=== PATIENT | male | born 1990 | race Caucasian/White ===

== ENCOUNTER 2021-06-20 00:34 | Observation (INO) | payer BC, OTHER ==
[2021-06-20] MEDS ORDERED: SODIUM CHLORIDE 0.9% 500 ML 500 ML IV STA ×2 (00:48→01:47)
[2021-06-20] MEDS ORDERED: LORazepam 2 MG/ML INJ IV PRN (00:48)
[2021-06-20] MEDS ORDERED: SODIUM CHLORIDE 0.9% 1,000 ML IV STA ×3 (00:48→01:47)
[2021-06-20] MEDS ORDERED: THIAMINE 100 MG/ML 2 ML VIAL IM STA (00:48)
--- NOTE | 2021-06-20 00:57 | ED ---
Alcohol HPI - General Chief Complaint: Alcohol Stated Complaint: Alcohol Withdrawal Time Seen by Provider: 06/20/21 00:48 Source: patient, EMS, RN notes reviewed, old records reviewed Mode of arrival: EMS Limitations: altered mental status - History of Present Illness Initial Comments: This is a 31-year-old male to the emergency department for evaluation. Patient is mildly poor historian. Patient presents today for alcohol withdrawal pick patient is sent from [place] for evaluation regarding possible altered mental status. MD Complaint: alcohol intoxication, alcohol withdrawal, desires rehab Last Drink: unknown Previous Visits for Alcohol Intoxication?: No Recent Trauma: No Associated Symptoms: nausea Treatments Prior to Arrival: none Chronic Alcohol Use: Yes - Related Data Allergies Allergy/AdvReac Type Severity Reaction Status Date / Time Fish Containing Products AdvReac Nausea & Verified 06/20/21 00:41 [Fish] Vomiting & Diarrhea Review of Systems ROS Statement: Those systems with pertinent positive or pertinent negative responses have been documented in the HPI. ROS Other: All systems not noted in ROS Statement are negative. Past Medical History Past Medical History: Hypertension Additional Past Medical History / Comment(s): ETOH abuse, diverticulitis, ostomy bag History of Any Multi-Drug Resistant Organisms: None Reported Past Surgical History: Bowel Resection Additional Past Surgical History / Comment(s): bowel resection Past Psychological History: No Psychological Hx Reported Smoking Status: Current every day smoker Past Alcohol Use History: Abuse, Daily Past Drug Use History: Marijuana General Exam Limitations: altered mental status General appearance: alert, in no apparent distress, anxious Head exam: Present: atraumatic, normocephalic, normal inspection Eye exam: Present: normal appearance, PERRL, EOMI. Absent: scleral icterus, conjunctival injection, periorbital swelling ENT exam: Present: normal exam, mucous membranes moist Neck exam: Present: normal inspection. Absent: tenderness, meningismus, lymphadenopathy Respiratory exam: Present: normal lung sounds bilaterally. Absent: respiratory distress, wheezes, rales, rhonchi, stridor Cardiovascular Exam: Present: regular rate, normal rhythm, normal heart sounds. Absent: systolic murmur, diastolic murmur, rubs, gallop, clicks GI/Abdominal exam: Present: soft, normal bowel sounds. Absent: distended, tenderness, guarding, rebound, rigid Extremities exam: Present: normal inspection, full ROM, normal capillary refill. Absent: tenderness, pedal edema, joint swelling, calf tenderness Back exam: Present: normal inspection Neurological exam: Present: alert, oriented X3, CN II-XII intact Psychiatric exam: Present: normal affect, normal mood Skin exam: Present: warm, dry, intact, normal color. Absent: rash Course Vital Signs 06/20/21 06/20/21 00:38 01:34 Temperature 98.3 F Pulse Rate 78 73 Respiratory 18 16 Rate Blood Pressure 152/86 O2 Sat by Pulse 98 99 Oximetry - Reevaluation(s) Reevaluation #1: 06/20/21 00:57 Medical records reviewed Reevaluation #2: 06/20/21 02:07 Patient symptoms are moderately improved here in the ER Reevaluation #3: 06/20/21 02:07 Patient is informed of results and questions have been answered - Consultations Consultation #1: Spoke with [facility] who agree to admit the patient Medical Decision Making - Medical Decision Making 31-year-old male to the emergency department for evaluation. Patient is from [place] with altered mental status may be early delirium. Patient is going through alcohol withdrawal. Patient also has pancreatitis with abnormal lab values. Patient be admitted for evaluation and treatment - Lab Data Result diagrams: 06/20/21 00:59 06/20/21 00:59 Lab Results 06/20/21 06/20/21 06/20/21 Range/Units 00:59 00:59 01:00 WBC 5.9 (3.8-10.6) k/uL RBC 3.53 L (4.30-5.90) m/uL Hgb 12.7 L (13.0-17.5) gm/dL Hct 37.3 L (39.0-53.0) % MCV 105.8 H (80.0-100.0) fL MCH 36.0 H (25.0-35.0) pg MCHC 34.0 (31.0-37.0) g/dL RDW 14.2 (11.5-15.5) % Plt Count 130 L (150-450) k/uL MPV 8.9 Neutrophils % 47 % Lymphocytes % 35 % Monocytes % 10 % Eosinophils % 4 % Basophils % 2 % Neutrophils # 2.8 (1.3-7.7) k/uL Lymphocytes # 2.1 (1.0-4.8) k/uL Monocytes # 0.6 (0-1.0) k/uL Eosinophils # 0.2 (0-0.7) k/uL Basophils # 0.1 (0-0.2) k/uL Macrocytosis Moderate Sodium 133 L (137-145) mmol/L Potassium 3.4 L (3.5-5.1) mmol/L Chloride 97 L (98-107) mmol/L Carbon Dioxide 22 (22-30) mmol/L Anion Gap 14 mmol/L BUN 16 (9-20) mg/dL Creatinine 0.66 (0.66-1.25) mg/dL Est GFR (CKD-EPI)AfAm >90 (>60 ml/min/1.73 sqM) Est GFR (CKD-EPI)NonAf >90 (>60 ml/min/1.73 sqM) Glucose 90 (74-99) mg/dL Calcium 8.8 (8.4-10.2) mg/dL Phosphorus 4.4 (2.5-4.5) mg/dL Magnesium 0.9 L* (1.6-2.3) mg/dL Total Bilirubin 8.8 H (0.2-1.3) mg/dL AST 317 H (17-59) U/L ALT 117 H (4-49) U/L Alkaline Phosphatase 147 H (38-126) U/L Total Protein 7.9 (6.3-8.2) g/dL Albumin 4.2 (3.5-5.0) g/dL Lipase 1993 H (23-300) U/L Urine Color Dark Yellow Urine Appearance Clear (Clear) Urine pH 7.0 (5.0-8.0) Ur Specific [place] 1.007 (1.001-1.035) Urine Protein Negative (Negative) Urine Glucose (UA) Negative (Negative) Urine Ketones Negative (Negative) Urine Blood Negative (Negative) Urine Nitrite Negative (Negative) Urine Bilirubin 2+ H (Negative) Urine Urobilinogen 12.0 (<2.0) mg/dL Ur Leukocyte Esterase Negative (Negative) Urine Opiates Screen Not Detected (NotDetected) Ur Oxycodone Screen Not Detected (NotDetected) Urine Methadone Screen Not Detected (NotDetected) Ur Propoxyphene Screen Not Detected (NotDetected) Ur Barbiturates Screen Not Detected (NotDetected) U Tricyclic Antidepress Detected H (NotDetected) Ur Phencyclidine Scrn Not Detected (NotDetected) Ur Amphetamines Screen Not Detected (NotDetected) U Methamphetamines Scrn Not Detected (NotDetected) U Benzodiazepines Scrn Detected H (NotDetected) Urine Cocaine Screen Not Detected (NotDetected) U Marijuana (THC) Screen Detected H (NotDetected) Serum Alcohol <10 mg/dL Disposition Clinical Impression: Alcohol withdrawal syndrome, Alcoholic hepatitis, Hypomagnesemia, Hypokalemia, Acute pancreatitis Disposition: ADMITTED IP TO THIS [facility] Condition: Fair Is patient prescribed a controlled substance at d/c from ED?: No Referrals: Nonstaff,Physician [Primary Care Provider] - 1-2 days
[2021-06-20 01:13] LABS: Basophils # (A) 0.1 k/uL (0-0.2); Basophils % (A) 2 %; Eosinophils # (A) 0.2 k/uL (0-0.7); Eosinophils % (A) 4 %; HCT 37.3 % (39.0-53.0); HGB 12.7 gm/dL (13.0-17.5); Lymphocytes # (A) 2.1 k/uL (1.0-4.8); Lymphocytes % (A) 35 %; MCV 105.8 fL (80.0-100.0); Macrocytosis Moderate; Mean Platelet Volume 8.9; Monocytes # (A) 0.6 k/uL (0-1.0); Monocytes % (A) 10 %; Neutrophils # (A) 2.8 k/uL (1.3-7.7); Neutrophils % (A) 47 %; Platelet Count 130 k/uL (150-450); RBC 3.53 m/uL (4.30-5.90); RDW 14.2 % (11.5-15.5); WBC 5.9 k/uL (3.8-10.6)
[2021-06-20 01:24] LABS: Appearance,Urine Clear (Clear); Bilirubin,Urine 2+ (Negative); Blood,Urine Negative (Negative); Color,Urine Dark Yellow; Glucose,Urine (UA) Negative (Negative); Ketones,Urine Negative (Negative); Leukocyte Esterase,Urine Negative (Negative); Nitrite,Urine Negative (Negative); Protein,Urine Negative (Negative); Specific Gravity,Urine 1.007 (1.001-1.035)
[2021-06-20] MEDS: LORazepam 2 MG/ML INJ IV PRN ×8 (01:25→17:00)
[2021-06-20] MEDS: DIAZEPAM 5 MG/ML 2 ML INJ IVP SCH ×4 (01:25→18:36)
[2021-06-20 01:35] LABS: ALT 117 U/L (4-49); AST 317 U/L (17-59); African American GFR (CKD) >90 (>60 ml/min/1.73 sqM); Albumin 4.2 g/dL (3.5-5.0); Alcohol <10 mg/dL; Alkaline Phosphatase 147 U/L (38-126); Anion Gap 14 mmol/L; Blood Urea Nitrogen 16 mg/dL (9-20); Calcium 8.8 mg/dL (8.4-10.2); Carbon Dioxide 22 mmol/L (22-30); Chloride 97 mmol/L (98-107); Glucose 90 mg/dL (74-99); Lipase 1993 U/L (23-300); Non-African American GFR(CKD) >90 (>60 ml/min/1.73 sqM); Phosphorus 4.4 mg/dL (2.5-4.5); Potassium 3.4 mmol/L (3.5-5.1); Sodium 133 mmol/L (137-145); Total Bilirubin 8.8 mg/dL (0.2-1.3); Total Protein 7.9 g/dL (6.3-8.2)
[2021-06-20 01:37] LABS: Cocaine Screen,Urine Not Detected (NotDetected); Opiate Screen,Urine Not Detected (NotDetected); Phencyclidine Screen,Urine Not Detected (NotDetected); Urn Cannabinoid Scrn Detected (NotDetected)
[2021-06-20 01:38] LABS: Amphetamine Screen,Urine Not Detected (NotDetected); Barbiturate Screen,Urine Not Detected (NotDetected); Benzodiazepines Screen,Urine Detected (NotDetected); Methadone Screen, Urine Not Detected (NotDetected); Oxycodone Screen, Urine Not Detected (NotDetected); Tricyclic Antidepressant,Urine Detected (NotDetected)
[2021-06-20 01:41] LABS: Magnesium 0.9 mg/dL (1.6-2.3)
[2021-06-20] MEDS ORDERED: POTASSIUM CHLORIDE 20 MEQ in WATER FOR INJECTION 1 100ML.BAG IVPB STA (01:48)
[2021-06-20] MEDS ORDERED: POTASSIUM BICARBONATE/CIT AC 20 MEQ TABLET.EFF PO ONE (01:48)
[2021-06-20] MEDS ORDERED: MORPHINE SULFATE 4 MG/ML SYRINGE IV PRN (02:04)
[2021-06-20] MEDS ORDERED: NALOXONE 0.4 MG/ML 1 ML VIAL IV PRN (02:04)
[2021-06-20] MEDS ORDERED: ONDANSETRON 4 MG/2 ML VIAL IVP PRN (02:04)
[2021-06-20 03:32] LABS: INR 1.2 (<1.2); Prothrombin Time 12.9 sec (9.0-12.0)
[2021-06-20] MEDS: MAGNESIUM SULFATE-D5W PMX 1 GM in DEXTROSE/WATER 1 100ML.BAG IVPB SCH ×4 (03:52→09:01)
[2021-06-20] MEDS: DEXTROSE 5%-0.45% NACL 1,000 ML IV SCH ×2 (03:57→10:50)
[2021-06-20] MEDS ORDERED: THIAMINE 100 MG TAB PO SCH (07:30)
[2021-06-20] MEDS ORDERED: LORazepam 2 MG/ML INJ IV STA (09:01)
[2021-06-20] MEDS: HALOPERIDOL LACTATE 5 MG/ML 1 ML VIAL IM PRN ×2 (09:17→13:17)
[2021-06-20] MEDS: MULTIVITAMINS, THERA 1 EACH TAB PO SCH (09:17)
[2021-06-20 10:06] LABS: HCT 37.5 % (39.0-53.0); HGB 12.1 gm/dL (13.0-17.5); MCH 35.2 pg (25.0-35.0); MCHC 32.2 g/dL (31.0-37.0); MCV 109.4 fL (80.0-100.0); Macrocytosis Marked; Mean Platelet Volume 8.5; Platelet Count 133 k/uL (150-450); RBC 3.43 m/uL (4.30-5.90); WBC 4.8 k/uL (3.8-10.6)
[2021-06-20 10:21] LABS: ALT 114 U/L (4-49); AST 286 U/L (17-59); African American GFR (CKD) >90 (>60 ml/min/1.73 sqM); Albumin 3.9 g/dL (3.5-5.0); Alkaline Phosphatase 156 U/L (38-126); Amylase 128 U/L (30-110); Anion Gap 9 mmol/L; Blood Urea Nitrogen 10 mg/dL (9-20); Calcium 8.4 mg/dL (8.4-10.2); Carbon Dioxide 17 mmol/L (22-30); Chloride 106 mmol/L (98-107); Globulin 3.8 g/dL; Glucose 94 mg/dL (74-99); Lipase 1479 U/L (23-300); Non-African American GFR(CKD) >90 (>60 ml/min/1.73 sqM); Sodium 132 mmol/L (137-145); Total Bilirubin 8.3 mg/dL (0.2-1.3); Total Protein 7.7 g/dL (6.3-8.2)
[2021-06-20 11:46] LABS: Basophils # (M) 0.05 k/uL (0-0.2); Eosinophils # (M) 0.05 k/uL (0-0.7); Lymphocytes # (M) 1.68 k/uL (1.0-4.8); Monocytes # (M) 0.48 k/uL (0-1.0); Neutrophils # (M) 2.54 k/uL (1.3-7.7); Neutrophils % (M) 53 %; Nucleated Red Blood Cells 0 /100 WBC (0-0); Total Cells Counted 100
[2021-06-20] MEDS: NICOTINE 21MG/24HR PATCH TRANSDERM SCH (11:55)
[2021-06-20 12:12] LABS: Glucose,Whole Blood 112 mg/dL (75-99)
[2021-06-20] MEDS ORDERED: ACETAMINOPHEN TAB 325 MG TAB PO PRN (14:44)
[2021-06-20] MEDS ORDERED: cloNIDine HCL 0.1 MG TAB PO PRN (14:44)
[2021-06-20] MEDS ORDERED: ONDANSETRON 4 MG TAB PO PRN (14:44)
--- NOTE | 2021-06-20 14:45 | P.HPIM ---
History of Present Illness H&P Date: 06/20/21 This is a 31-year-old male who was recently admitted from [place] [facility] for altered mental status and alcohol withdrawal. Patient is a poor historian although able to report he has an ostomy from chronic diverticulitis and admits to drinking approximately 2 pints of alcohol per day and reports his last drink was approximately 3 or 4 days ago. Patient was placed on CIWA protocol. Patient has a past medical history of EtOH abuse, diverticulitis, and colostomy, bowel resection, continued ongoing nicotine abuse, daily marijuana user, and hypertension. Labs on initial ER presentation show WBC of 4.8, hemoglobin is 12.1, platelets are 133, sodium is 132, potassium is 4.0, BUN is 10, creatinine is 0.56, magnesium is 0.9, total bilirubin is 8.3, AST 286, ALT is 114, alk phos is 156, ammonia is 40, amylase is 128, lipase is 1479, urinalysis was negative, antidepressants, benzos, marijuana was positive on urinalysis drug screen, serum alcohol is less than 10, COVID-19 not detected. Patient was started on IV hydration and will be admitted. Patient denies any chest pain, shortness of breath, or palpitations. Patient is afebrile. Patient denies any abdominal pain nausea or vomiting and is tolerating diet. Review Of Systems: Constitutional: No fever, no chills, no night sweats. No weight change. No weakness, fatigue or lethargy. No daytime sleepiness. EENT: No headache. No blurred vision or double vision, no loss of vision. No loss of Hearing, no ringing in the ears, no dizziness. No nasal drainage or congestion. No epistaxis. No sore throat. Lungs: No shortness of breath, cough, no sputum production. No wheezing. Cardiovascular: No chest pain, no lower extremity edema. No palpitations. No paroxysmal nocturnal dyspnea. No orthopnea. No lightheadedness or dizziness. No syncopal episodes. Abdominal: No abdominal pain. No nausea, vomiting. No diarrhea. No constipation. No bloody or tarry stools.. No loss of appetite. Genitourinary: No dysuria, increased frequency, urgency. No urinary retention. Musculoskeletal: No myalgias. No muscle weakness, no gait dysfunction, no frequent falls. No back pain. No neck pain. Integumentary: No wounds, no lesions. No rash or pruritus. No unusual bruising. No change in hair or nails. Neurologic: No aphasia. No facial droop. No change in mentation. No head injury. No headache. No paralysis. No paresthesia. Psychiatric: No depression. Reports anxiety. No mood swings. Endocrine: No abnormal blood sugars. No weight change. No excessive sweating or thirst. No cold intolerance. Active Medications Diazepam (Diazepam 5 Mg/Ml 2 Ml Inj) 5 mg IVP Q8H [facility] Last Admin: 06/20/21 11:20 Dose: 5 mg Documented by: Haloperidol Lactate (Haloperidol Lactate 5 Mg/Ml 1 Ml Vial) 2 mg IM Q4HR PRN PRN Reason: Agitation or Acute Psychosis Last Admin: 06/20/21 13:17 Dose: 2 mg Documented by: Dextrose/Sodium Chloride (Dextrose 5%-1/2ns Iv Soln) 1,000 mls @ 120 mls/hr IV .Q8H20M [facility] Last Admin: 06/20/21 10:50 Dose: 120 mls/hr Documented by: Lorazepam (Lorazepam 2 Mg/Ml Inj) 1 mg IV Q2HR PRN PRN Reason: CIWA 8 or 9 Last Admin: 06/20/21 04:12 Dose: 1 mg Documented by: Lorazepam (Lorazepam 2 Mg/Ml Inj) 1 mg IV Q1HR PRN PRN Reason: CIWA 10 to 15 Last Admin: 06/20/21 10:54 Dose: 1 mg Documented by: Morphine Sulfate (Morphine Sulfate 4 Mg/Ml Syringe) 4 mg IV Q4HR PRN PRN Reason: Severe Pain Multivitamins (Multivitamins, Thera 1 Each Tab) 1 each PO DAILY [facility] Last Admin: 06/20/21 09:17 Dose: 1 each Documented by: Naloxone HCl (Naloxone 0.4 Mg/Ml 1 Ml Vial) 0.2 mg IV Q2M PRN PRN Reason: Opioid Reversal Nicotine (Nicotine 21mg/24hr Patch) 1 patch TRANSDERM DAILY [facility] Last Admin: 06/20/21 11:55 Dose: 1 patch Documented by: Ondansetron HCl (Ondansetron 4 Mg/2 Ml Vial) 4 mg IVP Q8HR PRN PRN Reason: Nausea And Vomiting Last Admin: 06/20/21 11:24 Dose: 4 mg Documented by: Pantoprazole Sodium (Pantoprazole 40 Mg/10 Ml Vial) 40 mg IVP BID [facility] Thiamine HCl (Thiamine 100 Mg Tab) 200 mg PO BID-W/MEALS [facility] PHYSICAL EXAMINATION: GENERAL: The patient is alert and oriented x2-3, Well developed, well nourished. Anxious, pacing HEENT: Pupils are round and and dilated, reactive to light. EOMI. positive for scleral icterus. No conjunctival pallor. Normocephalic, atraumatic. No pharyngeal erythema. No thyromegaly. CARDIOVASCULAR: S1 and S2 present PULMONARY: Clear to auscultation with no wheezing or rhonchi noted ABDOMEN: soft. Nontender on exam. obese. Mildly distended, normoactive bowel sounds. No palpable organomegaly. Ostomy noted on the left with stool and gas MUSCULOSKELETAL: No joint swelling or deformity. EXTREMITIES: No cyanosis, clubbing, or pedal edema. NEUROLOGICAL: Gross neurological examination did not reveal any focal deficits. SKIN: No rashes. Assessment: Acute alcohol withdrawal with possible early delirium tremens Hyperammonemia Alcoholic hepatitis Elevated LFTs secondary to above Alcoholic cirrhosis with ascites History of chronic diverticulitis resulting in colostomy Hypertension Severe hypomagnesemia Alcoholic pancreatitis with elevated amylase and lipase GI prophylaxis DVT prophylaxis, early ambulation Full code Plan: Recommend to continue with current medications and CIWA protocol. Willl consult psychiatry and appreciate input and recommendations. Patient was apparently at [place] [facility] although was altered and going through withdrawals and was brought to the emergency department for further evaluation. On exam patient is altered and confused although somewhat coherent with his history. Patient is maintained on CIWA protocol and continues to be extremely anxious and restless and will use Haldol as well. Patient denies any history of alcoholic cirrhosis or hepatitis although continues to drink approximately 2 pints of hard liquor daily. Will order ultrasound of the liver which is currently pending. Ammonia level mildly elevated and will repeat labs. Patient's amylase and lipase is elevated although patient denies any abdominal pain, denies any discomfort on palpation during exam and will like to eat. Patient is tolerating diet with no reports of nausea or vomiting noted and again denies any abdominal pain. Patient is mildly distended with some ascites noted on exam and also noted to have left-sided colostomy with gas and stool noted. Recommend close monitoring and continuing to frequently reorient the patient. Magnesium was found to be 0.9 and will replace and repeat labs. Due to multiple complex medical issues, prognosis is guarded. The impression and plan of care has been dictated by Svitlana Baez, nurse practitioner as directed. MD Jan I have performed a history and examination and MDM of this patient, discussed the same with the dictator, and agree with the dictator's assessment and plan as written ,documented as a scribe. Based on total visit time, I have performed more than 50% of the visit. Any additional findings or plans will be noted. Review of Systems ROS unobtainable: due to mental status Past Medical History Past Medical History: Hypertension Additional Past Medical History / Comment(s): ETOH abuse, diverticulitis, ostomy bag History of Any Multi-Drug Resistant Organisms: None Reported Past Surgical History: Bowel Resection Additional Past Surgical History / Comment(s): bowel resection Past Psychological History: No Psychological Hx Reported Smoking Status: Current every day smoker Past Alcohol Use History: Abuse, Daily Past Drug Use History: Marijuana Medications and Allergies Home Medications Medication Instructions Recorded Confirmed Type Acetaminophen [Tylenol] 650 mg PO Q4H PRN MDD 3 DOSE 06/20/21 06/20/21 History DULoxetine HCL [Cymbalta] 60 mg PO DAILY 06/20/21 06/20/21 History Divalproex [Depakote] 500 mg PO BID 06/20/21 06/20/21 History LORazepam [Ativan] 1 - 2 mg PO DIRECTED 06/20/21 06/20/21 History Labetalol [Trandate] 100 mg PO TID 06/20/21 06/20/21 History QUEtiapine FUMARATE [SEROquel] 400 mg PO HS 06/20/21 06/20/21 History QUEtiapine [SEROquel] 100 mg PO DAILY 06/20/21 06/20/21 History amLODIPine [Norvasc] 5 mg PO DAILY 06/20/21 06/20/21 History cloNIDine HCL [Catapres] 0.1 - 0.3 mg PO Q4H PRN 06/20/21 06/20/21 History ondansetron HCL [Zofran] 8 mg PO Q6H PRN 06/20/21 06/20/21 History Allergies Allergy/AdvReac Type Severity Reaction Status Date / Time Fish Containing Products AdvReac Nausea & Verified 06/20/21 07:14 [Fish] Vomiting & Diarrhea Physical Exam Vitals: Vital Signs Temp Pulse Resp BP Pulse Ox 06/20/21 05:45 78 17 124/87 98 06/20/21 03:58 75 16 120/83 98 06/20/21 02:35 80 135/80 98 06/20/21 01:34 73 16 99 06/20/21 00:38 98.3 F 78 18 152/86 98 Intake and Output 06/19/21 06/20/21 06/20/21 22:59 06:59 14:59 Intake Total 480 Balance 480 Intake: Oral 480 Other: # Voids 1 # Bowel Movements 1 Weight 90.718 kg Results CBC & Chem 7: 06/20/21 09:38 06/20/21 09:38 Labs: Abnormal Lab Results - Last 24 Hours (Table) 06/20/21 06/20/21 06/20/21 Range/Units 00:59 00:59 01:00 RBC 3.53 L (4.30-5.90) m/uL Hgb 12.7 L (13.0-17.5) gm/dL Hct 37.3 L (39.0-53.0) % MCV 105.8 H (80.0-100.0) fL MCH 36.0 H (25.0-35.0) pg Plt Count 130 L (150-450) k/uL PT (9.0-12.0) sec INR (<1.2) Sodium 133 L (137-145) mmol/L Potassium 3.4 L (3.5-5.1) mmol/L Chloride 97 L (98-107) mmol/L Magnesium 0.9 L* (1.6-2.3) mg/dL Total Bilirubin 8.8 H (0.2-1.3) mg/dL AST 317 H (17-59) U/L ALT 117 H (4-49) U/L Alkaline Phosphatase 147 H (38-126) U/L Lipase 1993 H (23-300) U/L Urine Bilirubin 2+ H (Negative) U Tricyclic Antidepress Detected H (NotDetected) U Benzodiazepines Scrn Detected H (NotDetected) U Marijuana (THC) Screen Detected H (NotDetected) 06/20/21 Range/Units 03:13 RBC (4.30-5.90) m/uL Hgb (13.0-17.5) gm/dL Hct (39.0-53.0) % MCV (80.0-100.0) fL MCH (25.0-35.0) pg Plt Count (150-450) k/uL PT 12.9 H (9.0-12.0) sec INR 1.2 H (<1.2) Sodium (137-145) mmol/L Potassium (3.5-5.1) mmol/L Chloride (98-107) mmol/L Magnesium (1.6-2.3) mg/dL Total Bilirubin (0.2-1.3) mg/dL AST (17-59) U/L ALT (4-49) U/L Alkaline Phosphatase (38-126) U/L Lipase (23-300) U/L Urine Bilirubin (Negative) U Tricyclic Antidepress (NotDetected) U Benzodiazepines Scrn (NotDetected) U Marijuana (THC) Screen (NotDetected) Assessment and Plan Time with Patient: Greater than 30
--- NOTE | 2021-06-20 15:41 | US ---
EXAMINATION TYPE: US liver DATE OF EXAM: 06/20/2021 COMPARISON: NONE CLINICAL HISTORY: Alcoholic cirrhosis, ascites. EXAM MEASUREMENTS: Liver Length: 20.7 cm Gallbladder Wall: 0.2 cm CBD: 0.4 cm Right Kidney: 12.5 x 5.9 x 5.5 cm Pancreas: obscured by overlying midline bowel gas Liver: enlarged, attenuating, heterogeneous, increased echogenicity Gallbladder: borderline hydropic Evidence for sonographic [place]'s sign: n/a CBD: visualized portions wnl, limited by overlying bowel gas Right Kidney: wnl IMPRESSION: Hepatomegaly with underlying hepatic steatosis.
[2021-06-20] MEDS: QUEtiapine 400 MG TAB PO SCH ×2 (16:40→20:25)
[2021-06-20] MEDS: LABETALOL 100 MG TAB PO SCH (16:40)
[2021-06-20] MEDS: QUEtiapine 100 MG TAB PO SCH (16:43)
--- NOTE | 2021-06-20 18:17 | US ---
EXAMINATION TYPE: US abdomen limited DATE OF EXAM: 06/20/2021 COMPARISON: NONE CLINICAL HISTORY: us limited, ascites. No ascites seen. Limited abdomen ultrasound was performed. IMPRESSION: No evident ascites on this limited exam.
[2021-06-20] MEDS: THIAMINE 100 MG TAB PO SCH (20:24)
[2021-06-20] MEDS: DIVALPROEX 500 MG TABLET.DR PO SCH (20:25)
[2021-06-20] MEDS: PANTOPRAZOLE 40 MG/10 ML VIAL IVP SCH (20:25)
[2021-06-21] MEDS: LABETALOL 100 MG TAB PO SCH ×2 (00:34→09:22)
[2021-06-21] MEDS: DEXTROSE 5%-0.45% NACL 1,000 ML IV SCH ×3 (00:36→09:23)
[2021-06-21] MEDS: DIAZEPAM 5 MG/ML 2 ML INJ IVP SCH ×2 (03:28→10:56)
[2021-06-21] MEDS ORDERED: amLODIPine 5 MG TAB PO SCH (09:00)
[2021-06-21] MEDS: PANTOPRAZOLE 40 MG/10 ML VIAL IVP SCH (09:21)
[2021-06-21] MEDS: NICOTINE 21MG/24HR PATCH TRANSDERM SCH (09:22)
[2021-06-21] MEDS: MULTIVITAMINS, THERA 1 EACH TAB PO SCH (09:22)
[2021-06-21] MEDS: THIAMINE 100 MG TAB PO SCH (09:22)
[2021-06-21] MEDS: DULoxetine HCL 60 MG CAPSULE.DR PO SCH (09:22)
[2021-06-21] MEDS: DIVALPROEX 500 MG TABLET.DR PO SCH (09:23)
[2021-06-21 09:47] VITALS: TEMP 98.3
[2021-06-21 09:50] LABS: ALT 108 U/L (4-49); African American GFR (CKD) >90 (>60 ml/min/1.73 sqM); Albumin 3.7 g/dL (3.5-5.0); Anion Gap 10 mmol/L; Blood Urea Nitrogen 7 mg/dL (9-20); Calcium 8.4 mg/dL (8.4-10.2); Carbon Dioxide 17 mmol/L (22-30); Chloride 111 mmol/L (98-107); Glucose 122 mg/dL (74-99); Lipase 1399 U/L (23-300); Non-African American GFR(CKD) >90 (>60 ml/min/1.73 sqM); Phosphorus 3.3 mg/dL (2.5-4.5); Sodium 138 mmol/L (137-145); Total Bilirubin 7.6 mg/dL (0.2-1.3); Total Protein 7.3 g/dL (6.3-8.2)
[2021-06-21 09:55] LABS: AST 287 U/L (17-59); Alkaline Phosphatase 136 U/L (38-126); Potassium 4.3 mmol/L (3.5-5.1)
[2021-06-21] MEDS: QUEtiapine 100 MG TAB PO SCH (10:56)
--- NOTE | 2021-06-21 11:23 | P.CN ---
Psychiatric Consult - . Consult date: 06/21/21 Consult:: 06/21/21 11:16 This 31-year-old white male was seen for a psychiatric consult. He stated that he was drinking 2 pints of alcohol per day. He was at [place] and was transferred to [facility] with a diagnosis of delirium tremens. He stated that that he went to [place] for detox. He stated he occasionally uses marijuana but basically he has a problem with alcohol. He denies any other medical or surgical problems. He denies any family history of alcoholism or mental illness or suicide. 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 This patient is alert and oriented to time place and person he appears to be of his stated age. He denies any auditory or visual or any other types of hallucinations. He denies having any paranoid or any other types of delusions. He denies having any suicidal or homicidal thoughts ideations or plans. He denies having any anxiety or panic attacks. He denies having any mood swings, rozina or depression. He is a relevant, coherent and in touch with the reality and stated that that he likes to go back to [place] to pear picker his belongings. Beyond that he plans to go to [facility] recovery house after he is discharged from the hospital. Recommendations: This patient does not meet the criteria for inpatient psychiatric hospitalization. He can be discharged with the recommendation that he goes for alcohol rehabilitation.
[2021-06-21 11:34] LABS: HCT 39.3 % (39.0-53.0); HGB 12.4 gm/dL (13.0-17.5); MCH 34.9 pg (25.0-35.0); MCHC 31.6 g/dL (31.0-37.0); MCV 110.6 fL (80.0-100.0); Macrocytosis Marked; Mean Platelet Volume 8.6; Platelet Count 144 k/uL (150-450); RBC 3.55 m/uL (4.30-5.90); RDW 15.5 % (11.5-15.5)
[2021-06-21 11:36] VITALS: BP 131/86; PULSE 75; RESP 16
[2021-06-21 12:31] LABS: Monocytes # (M) 0.72 k/uL (0-1.0); Myelocytes # (M) 0.04 k/uL (0); Myelocytes % 1 %; Nucleated Red Blood Cells 0 /100 WBC (0-0)
[2021-06-21 12:33] LABS: Basophils # (M) 0.04 k/uL (0-0.2); Eosinophils # (M) 0.08 k/uL (0-0.7); Neutrophils % (M) 60 %; Total Cells Counted 200
--- NOTE | 2021-06-22 08:52 | P.DS ---
Providers Date of admission: 06/20/21 02:04 Attending physician: Jessica Newby Consults: 06/20/21 14:47 Consult Physician Urgent Consulting Provider: Dejuan Tolentino Consult Reason/Comments: AMS, etoh Do you want consulting provider notified?: Yes 06/20/21 23:50 Consult Physician Routine Consulting Provider: Psychiatry - [facility] Psychiatry Consult Reason/Comments: AMS, ETOH Do you want consulting provider notified?: Yes, Notify in am Primary care physician: Physician Nonstaff Hospital Course: Final Diagnosis Acute alcohol withdrawal with possible early delirium tremens Hyperammonemia Alcoholic hepatitis Elevated LFTs secondary to above Alcoholic cirrhosis with ascites History of chronic diverticulitis resulting in colostomy Hypertension Severe hypomagnesemia Alcoholic pancreatitis with elevated amylase and lipase Chronic ongoing nicotine dependence: Counseling provided GI prophylaxis DVT prophylaxis, early ambulation Full code Discharge Disposition Patient stable for discharge to [place] and then going to a sober house. Patient has a room available at a sober house, plan is to return to [place] for belongings and to transition to sober [facility] otherwise he is homeless. Worried if he stays in hospital any longer he will lose his room. Today he is alert and oriented and appropriate. He was cleared by psych with no need for inpatient evaluation. Hospital Course This is a pleasant 31 year old male who presents to the hospital with alcohol withdrawal sent from [place] regarding mental status changes. Patient is a past medical history significant for hypertension, liver disease, EtOH abuse, diverticulitis with colectomy and end colostomy. Patient also is a daily marijuana user, ongoing nicotine abuse. Patient is drinking 2 pints of alcohol per day last drink was about 3-4 days ago. He has been a [place] for rehab. Labs on admission show sodium 133, potassium 3.4, magnesium 0.9, total bili 8.8, AST 317, ALT 117, lipase 1993, white count 5.9, hemoglobin 12.7, platelet count 1:30. Ammonia was elevated at 40. Urine drug toxicology positive for benzodiazepines and marijuana, vital signs on admission 90.310, heart rate 70, blood pressure 124/87 and 98% room air. Liver ultrasound shows hepatomegaly with underlying hepatic steatosis. Abdominal ultrasound shows no evident ascites on this limited exam. Psychiatric evaluation patient was alert and oriented 3 there was no hallucinations or paranoia psychology follow patient was stable for discharge with recommendation was [facility] does not meet criteria for inpatient psychiatric admission. Patient follows with Dr. Roderick Contreras. Home medications include clonidine Zofran Ativan Seroquel and Cymbalta Trandate Depakote Norvasc. Patient does verbalize understanding of risk of continuing alcohol consumption. Treated with IM Haldol, IV Ativan. 06/21/2021 Patient is alert and oriented 3 and appropriate there are no hallucinations, no headache. He denies any chest pain cough or shortness of breath. Denies any nausea vomiting or diarrhea. Patient was monitored overnight and numerous signs of acute withdrawal. There is minimal tremoring with arms extended and patient states he does not feel the tremoring. He was to be discharged today to follow- up with his primary care provider as well as a GI specialist. He states that he does not leave today he will be homeless and he will lose his room with a sober house and he really needs to continue his sobriety. States he has completed alcohol withdrawl at [place] already. Labs show white count 4.0, hemoglobin 12.4, sodium 138, potassium 4.3, chloride 111, CO2 17, BUN 7, creatinine 0.47, glucose 112 ,magnesium 2.0, AST 287, ALT 108, alkphos 136, lipase improving at 1399. Lungs are clear, S1-S2 auscultated, abdomen with positive bowel sounds, ostomy is passing gas and stool. Patient ambulating without difficulty focal neurological exam is negative. Counseled on importance of alcohol tobacco cessation. Please see medication reconciliation for list of current medications. Thank you for allowing us to participate in the care of this patient. Patient Condition at Discharge: Fair Plan - Discharge Summary Discharge Rx Participant: No New Discharge Prescriptions: New Pantoprazole [Protonix] 40 mg PO DAILY #30 tab Thiamine [Vitamin B-1] 200 mg PO BID-W/MEALS #60 tab Nicotine 21Mg/24Hr Patch [Habitrol] 1 patch TRANSDERM DAILY #7 patch Multivitamins, Thera [Multivitamin (formulary)] 1 each PO DAILY #30 tab Continue LORazepam [Ativan] 1 - 2 mg PO DIRECTED QUEtiapine FUMARATE [SEROquel] 400 mg PO HS Labetalol [Trandate] 100 mg PO TID Divalproex [Depakote] 500 mg PO BID ondansetron HCL [Zofran] 8 mg PO Q6H PRN PRN Reason: Nausea Acetaminophen [Tylenol] 650 mg PO Q4H PRN MDD 3 DOSE PRN Reason: Pain Or Fever > 100.5 cloNIDine HCL [Catapres] 0.1 - 0.3 mg PO Q4H PRN PRN Reason: BP > 160/100 DULoxetine HCL [Cymbalta] 60 mg PO DAILY amLODIPine [Norvasc] 5 mg PO DAILY Discontinued QUEtiapine [SEROquel] 100 mg PO DAILY Discharge Medication List Acetaminophen [Tylenol] 650 mg PO Q4H PRN MDD 3 DOSE 06/20/21 [History] DULoxetine HCL [Cymbalta] 60 mg PO DAILY 06/20/21 [History] Divalproex [Depakote] 500 mg PO BID 06/20/21 [History] LORazepam [Ativan] 1 - 2 mg PO DIRECTED 06/20/21 [History] Labetalol [Trandate] 100 mg PO TID 06/20/21 [History] QUEtiapine FUMARATE [SEROquel] 400 mg PO HS 06/20/21 [History] amLODIPine [Norvasc] 5 mg PO DAILY 06/20/21 [History] cloNIDine HCL [Catapres] 0.1 - 0.3 mg PO Q4H PRN 06/20/21 [History] ondansetron HCL [Zofran] 8 mg PO Q6H PRN 06/20/21 [History] Multivitamins, Thera [Multivitamin (formulary)] 1 each PO DAILY #30 tab 06/21/21 [Rx] Nicotine 21Mg/24Hr Patch [Habitrol] 1 patch TRANSDERM DAILY #7 patch 06/21/21 [Rx] Pantoprazole [Protonix] 40 mg PO DAILY #30 tab 06/21/21 [Rx] Thiamine [Vitamin B-1] 200 mg PO BID-W/MEALS #60 tab 06/21/21 [Rx] Follow up Appointment(s)/Referral(s): Roderick Contreras Dr [Other] - 1-2 Days Ambulatory/Diagnostic Orders: Comprehensive Metabolic Panel [LAB.AMB] Time Frame: 3 Days, Location: None Selected Lipase [LAB.AMB] Time Frame: 3 Days, Location: None Selected Patient Instructions/Handouts: Pancreatitis (DC), Cirrhosis (DC), Alcohol Dependence (DC) Activity/Diet/Wound Care/Special Instructions: Discharge back to [place] Patient has a room available at a sober house, plan is to return to [place] for belongings and to transition to sober house otherwise he is homeless. Worried if he stays in hospital any longer he will lose his room. Recommend patient to follow up with a gastro-enterologist Discussed risk of ongoing alcohol use, patient verbalizes understanding Discharge Disposition: OTHER INSTITUTION NOT DEFINED
== END 2021-06-21 14:19 | disposition other institution (70) ==
LOC: EC 00:34 → 5NMEDONC 02:04 → INTOOBSV 02:04 → 3SCARD 13:22 → UNDODISIN 06-21 14:19
PROVIDERS: ADMIT Hospitalist; ATTEND Hospitalist
PROC: HZ2ZZZZ Detoxification Services for Substance Abuse Treatment (ICD-10-PCS; principal; 2021-06-20)
DX: F10.231 Alcohol dependence with withdrawal delirium (principal); K85.20 Alcohol induced acute pancreatitis without necrosis or infection; F10.229 Alcohol dependence with intoxication, unspecified; K70.11 Alcoholic hepatitis with ascites; K70.31 Alcoholic cirrhosis of liver with ascites; Z20.822 Contact with and (suspected) exposure to COVID-19; K76.0 Fatty (change of) liver, not elsewhere classified; Y90.0 Blood alcohol level of less than 20 mg/100 ml; E87.6 Hypokalemia; E83.42 Hypomagnesemia; I10 Essential (primary) hypertension; F17.210 Nicotine dependence, cigarettes, uncomplicated; F12.90 Cannabis use, unspecified, uncomplicated; K57.90 Diverticulosis of intestine, part unspecified, without perforation or abscess without bleeding; Z79.899 Other long term (current) drug therapy; Z91.013 Allergy to seafood; Z71.6 Tobacco abuse counseling; Z71.41 Alcohol abuse counseling and surveillance of alcoholic; Z93.3 Colostomy status; Z87.19 Personal history of other diseases of the digestive system; Z90.49 Acquired absence of other specified parts of digestive tract; Z59.00 Homelessness unspecified
CPT/HCPCS: 99285; 96376; 96365; 96366; 96367; 96372; 96375; 36415; 80053 ×2; 82140; 82150; 83690 ×2; 83735 ×2; 84100 ×2; 85025 ×2; 85610; 85730; 81003; 80306; 80320; 87635; 76705 ×2; G0378 ×2; S4990 ×2; J2060; J1630; J3411; J3360 ×2; J3480; J2405; J3475; C9113 ×2